=== PATIENT | female | born 1990 | race African-American/Black ===

== ENCOUNTER 2019-03-25 12:30 | Emergency (ER) | payer OTHER ==
[~2019-03-25] VITALS: Ht 152.4 cm; Wt 53.0 kg
[2019-03-25 12:32] VITALS: BP 107/68
== END 2019-03-25 16:57 | disposition left against medical advice (07) ==
LOC: ER 12:30
DX: Z53.21 Procedure and treatment not carried out due to patient leaving prior to being seen by health care provider (principal)